=== PATIENT | female | born 1995 | race African-American/Black ===

== ENCOUNTER 2019-05-09 01:51 | Emergency (ER) | payer BC ==
--- NOTE | 2019-05-09 02:11 | PDOC ---
History of Present Illness - General Stated Complaint: MIGRAINE Time Seen by Provider: 05/09/19 02:10 - History of Present Illness Initial Comments: 23 year old female with history of migraine and PCOS presenting with a headache of sudden onset at 24:00 this evening. She typically takes Motrin for her headaches but took nothing today. She did have some blurry vision when this first started but has resolved since. States that her headache is usually temporal bilateral but this time it started in her posterior occiput and radiated down her neck. She denies fevers, chills, neck stiffness, or other symptoms. 05/09/19 04:54 Past History - Past Medical History Allergies/Adverse Reactions: Allergies Allergy/AdvReac Type Severity Reaction Status Date / Time Sulfa (Sulfonamide Allergy Intermediate Hives Verified 05/09/19 04:35 Antibiotics) [Sulfa(Sulfonamide Antibiotics)] Home Medications: Ambulatory Orders NK [No Known Home Medication] 05/09/19 - Immunization History Immunization Up to Date: No - Psycho Social/Smoking Cessation Hx Smoking Status: No Smoking History: Never smoked Number of Cigarettes Smoked Daily: 1 Review of Systems - Review of Systems Constitutional: No: Chills, Diaphoresis, Fever, Loss of Appetite HEENTM: Yes: Blurred Vision. No: Eye Pain Respiratory: No: Cough, Orthopnea, Shortness of Breath Cardiac (ROS): No: Chest Pain, Edema, Irregular Heart Rate ABD/GI: No: Diarrhea, Nausea, Vomiting : No: Dysuria, Discharge, Frequency Musculoskeletal: No: Gout, Joint Pain, Joint Swelling Integumentary: No: Change in Color Neurological: Yes: Headache. No: Numbness, Paresthesia, Tremors, Weakness Psychiatric: No: Anxiety, Depression Hematologic/Lymphatic: No: Anemia, Blood Clots *Physical Exam - Physical Exam General Appearance: Yes: Nourished, Appropriately Dressed. No: Apparent Distress HEENT: positive: EOMI, RULA, Normal ENT Inspection, Normal Voice Neck: positive: Trachea midline, Normal Thyroid, Supple. negative: Tender, Rigid Respiratory/Chest: positive: Lungs Clear, Normal Breath Sounds. negative: Chest Tender, Respiratory Distress, Accessory Muscle Use Cardiovascular: positive: Regular Rhythm, Regular Rate Gastrointestinal/Abdominal: positive: Normal Bowel Sounds, Flat, Soft. negative : Tender Musculoskeletal: positive: Normal Inspection. negative: Decreased Range of Motion Extremity: positive: Normal Capillary Refill, Normal Inspection, Normal Range of Motion. negative: Tender Integumentary: positive: Normal Color, Dry, Warm Neurologic: positive: Fully Oriented, Alert, Normal Mood/Affect, Normal Response , Motor Strength 5/5 Medical Decision Making - Medical Decision Making 23 year old female with PCOS presenting acute migraine for which she has not tried any medications. HCG negative, head Ct negative, and patient's symptoms improved with Reglan, Tylenol, and oral hydration. 05/09/19 05:01 Discharge - Discharge Information Problems reviewed: Yes Clinical Impression/Diagnosis: Migraine Qualifiers: Migraine type: with aura Status migrainosus presence: without status migrainosus Intractability: not intractable Qualified Code(s): G43.109 - Migraine with aura, not intractable, without status migrainosus Condition: Stable Disposition: HOME - Admission No - Follow up/Referral - Patient Discharge Instructions Patient Printed Discharge Instructions: DI for Migraine Additional Instructions: Please take you headache medication as needed for your pain. Please follow up with your neurologist at your scheduled appointment. Return to the ED if you have any new or worsening symptoms. - Post Discharge Activity
[2019-05-09 02:44] VITALS: BP 124/77; PULSE 86; TEMP 99.4; BMI 44.8
[2019-05-09] MEDS ORDERED: ACETAMINOPHEN 500 MG TABLET (FP) PO ONE (03:01)
[2019-05-09] MEDS ORDERED: SODIUM CHLORIDE 0.9% 500 ML INFUS.BAG IV ONE (03:01)
[2019-05-09] MEDS ORDERED: METOCLOPRAMIDE HCL 10 MG TABLET (FP) PO ONE ×2 (03:03→04:54)
--- NOTE | 2019-05-09 03:37 | PDOC ---
Attending Attestation - Resident Resident Name: [email or web address] - ED Attending Attestation I have performed the following: I have examined & evaluated the patient, The case was reviewed & discussed with the resident, I agree w/resident's findings & plan, Exceptions are as noted - HPI HPI: 05/09/19 04:28 Ms. Mancini is a 23 yo F h/p headaches who presents to the ER with a complaint of headache Pt went to sleep, woke up approximately at midnight due to headache Typical headache is frontal, throbbing and resolves after resting This headache is noted to be in the occipital region on the left side of the head and radiating forward, pain is constant No trauma Pt has not taken any medications for her headache prior to coming in to the ER (she has seen Neuro for her headaches but was not started on any particular medications, she therefore takes Motrin but in general avoids taking pain medications) No fevers or chills, no recent illness No vomiting 05/09/19 21:57 - Physicial Exam PE: 05/09/19 03:37 GENERAL: The patient is in no acute distress, no photophobia. ENT: Ears normal, nares patent, oropharynx clear without exudates. Moist mucous membranes. NECK: Normal range of motion, supple, no nuchal rigidity LUNGS: Breath sounds equal, clear to auscultation bilaterally. No wheezes, and no crackles. HEART:Regular rate and rhythm, normal S1 and S2 without murmur, rub or gallop. ABDOMEN: Soft, nontender, normoactive bowel sounds. EXTREMITIES: Normal range of motion, no edema. NEUROLOGICAL: Cranial nerves II through XII grossly intact. Normal speech. No focal neurological deficits. SKIN: Warm, Dry, normal turgor, no rashes or lesions noted. 05/09/19 05:30 05/09/19 05:31 05/09/19 22:01 - Medical Decision Making 05/09/19 05:30 23 yo F with headache h/o migraines Pt not willing to stay in the er for any additional medications CT head negative for acute bleed Pt would like to go home Pt asked to return to the ER for any worsening or persistent symptoms
[2019-05-09] MEDS ORDERED: ACETAMINOPHEN 325 MG TABLET (FP) ONE (04:53)
== END 2019-05-09 05:20 | disposition home or self-care (01) ==
LOC: JER 01:51
DX: G43.909 Migraine, unspecified, not intractable, without status migrainosus (principal); E28.2 Polycystic ovarian syndrome; Z88.2 Allergy status to sulfonamides
CPT/HCPCS: 70450-TC; 84703; 99282-25